=== PATIENT | female | born 1980 | race African-American/Black ===

== ENCOUNTER 2018-03-26 01:03 | Emergency (ER) | payer BC, MEDICAID ==
[~2018-03-26] VITALS: Ht 167.6 cm; Wt 82.0 kg
[2018-03-26 07:28] VITALS: BP 117/66
== END 2018-03-26 07:54 | disposition home or self-care (01) ==
LOC: ER 02:07
DX: S93.401A Sprain of unspecified ligament of right ankle, initial encounter (principal); W10.8XXA Fall (on) (from) other stairs and steps, initial encounter; Y93.89 Activity, other specified; Y92.098 Other place in other non-institutional residence as the place of occurrence of the external cause; Z88.6 Allergy status to analgesic agent
CPT/HCPCS: 73610; 73630; 81025; 99284; Z7610

== ENCOUNTER 2023-03-11 04:00 | Emergency (ER) | payer MEDICAID, OTHER ==
[~2023-03-11] VITALS: Ht 175.3 cm; Wt 82.0 kg
[2023-03-11 04:38] LABS: BASOPHILS % 0.2 % (0.0-2.0); HEMATOCRIT. 38.1 % (36.0-48.0); HEMOGLOBIN. 12.5 g/dL (12.0-16.0); LYMPHOCYTES % 7.3 % (20.0-50.0); MEAN CORPUSCULAR HEMOGLOBIN 25.8 pg (28.0-32.0); MEAN CORPUSCULAR VOLUME 78.8 fL (81.0-99.0); MEAN PLATELET VOLUME 9.9 fl (7.4-10.4); MONOCYTES % 2.6 % (2.0-8.0); NEUTROPHILS % 89.9 % (40.0-76.0); PLATELET 175 x1000/uL (130-400); RED BLOOD CELL COUNT 4.84 mill/uL (4.2-5.4); RED CELL DISTRIBUTION WIDTH 15.5 % (11.6-14.6)
[2023-03-11 05:02] LABS: CHLORIDE 105 mEq/L (98-107)
[2023-03-11 05:16] LABS: HCG SCREEN NEGATIVE
[2023-03-11] MEDS ORDERED: MORPHINE SULFATE 4 MG/ML CPJ (NOT FOR IM USE) IV NR (05:45)
[2023-03-11] MEDS ORDERED: ONDANSETRON HCL 4MG/2ML INJ IV NR (05:45)
[2023-03-11] MEDS ORDERED: DEXT 5%/0.45% NACL KCL 20MEQ/L 1,000 ML IV ONE (10:15)
[2023-03-11 12:12] VITALS: BP 108/60
== END 2023-03-11 12:30 | disposition short-term general hospital (02) ==
LOC: ER 04:00
DX: K56.600 Partial intestinal obstruction, unspecified as to cause (principal); R11.2 Nausea with vomiting, unspecified; Z20.822 Contact with and (suspected) exposure to COVID-19
CPT/HCPCS: 36415; 74022; 76705; 80053; 83605; 83690; 84703; 85025; 87426; 96374; 96375; 99291; C9803; J2270; J2405; Z7610